=== PATIENT | male | born 1960 | race Caucasian/White ===

== ENCOUNTER 2020-07-27 07:31 | Observation (INO) | payer OTHER ==
[~2020-07-27] VITALS: Ht 177.8 cm; Wt 98.6 kg
[2020-07-27 07:45] LABS: BASO # 0.1 x10^3/uL (0.0-0.2); BASO % 1 % (0-3); EOS # 0.2 x10^3/uL (0.0-0.7); EOS % 3 % (0-3); HEMATOCRIT 49.8 % (39.0-53.0); HEMOGLOBIN 17.1 g/dL (13.0-17.5); LYMPH # 3.1 x10^3/uL (1.0-4.8); LYMPH % 34 % (24-48); MEAN CORPUSCULAR HEMOGLOBIN 32 pg (25-35); MEAN CORPUSCULAR HGB CONC 34 g/dL (31-37); MEAN CORPUSCULAR VOLUME 94 fL (79-100); MONO # 0.8 x10^3/uL (0.0-1.1); MONO % 9 % (0-9); NEUT # 4.7 x10^3/uL (1.8-7.7); NEUT % 53 % (31-73); PLATELET COUNT 310 x10^3/uL (140-400); RED BLOOD COUNT 5.29 x10^6/uL (4.30-5.70); RED CELL DISTRIBUTION WIDTH 13.3 % (11.5-14.5)
[2020-07-27 07:58] LABS: GFR 75.7; POTASSIUM 3.4 mmol/L (3.5-5.1)
--- NOTE | 2020-07-27 07:59 | RAD ---
AP chest. HISTORY: Chest pain AP view was taken of the chest. Lungs are clear. Heart is normal in size. There is no effusion. IMPRESSION: 1. No acute chest disease. Electronically signed by: Ke Christensen MD (07/27/2020 7:57 AM) [id number]
--- NOTE | 2020-07-27 08:09 | ED.ADGEN ---
Past Medical History Past Medical History: Arthritis Additional Past Medical Histor: DDD,HEP C,BARRITS ESOPHAGEAL Past Surgical History: Other Additional Past Surgical Histo: LEFT LEG Smoking Status: Current Every Day Smoker Alcohol Use: None General Adult EDM: Chief Complaint: CHEST PAIN-CARDIAC NATURE HPI: HPI: Patient is a 60 year old [f__sex] who presents with [] Review of Systems: Review of Systems: Constitutional: Denies fever or chills. [] Eyes: Denies change in visual acuity. [] HENT: Denies nasal congestion or sore throat. [] Respiratory: Denies cough or shortness of breath. [] Cardiovascular: Denies chest pain or edema. [] GI: Denies abdominal pain, nausea, vomiting, bloody stools or diarrhea. [] : Denies dysuria. [] Musculoskeletal: Denies back pain or joint pain. [] Integument: Denies rash. [] Neurologic: Denies headache, focal weakness or sensory changes. [] Endocrine: Denies polyuria or polydipsia. [] Lymphatic: Denies swollen glands. [] Psychiatric: Denies depression or anxiety. [] Current Medications: Current Medications Medications (Trade) Dose Ordered Sig/Cherry Start Time Stop Time Status Last Admin Dose Admin Potassium Bicarbonate (Potassium Effervescent Tablet) 40 meq 1X ONCE 07/27/20 08:45 07/27/20 08:46 DC 07/27/20 08:45 40 MEQ Allergies: Allergies: Allergies Coded Allergies Type Severity Reaction Last Updated Verified No Known Drug Allergies 07/27/20 No Physical Exam: PE: Constitutional: Well developed, well nourished, no acute distress, non-toxic appearance. [] HENT: Normocephalic, atraumatic, bilateral external ears normal, oropharynx moist, no oral exudates, nose normal. [] Eyes: PERRLA, EOMI, conjunctiva normal, no discharge. [] Neck: Normal range of motion, no tenderness, supple, no stridor. [] Cardiovascular:Heart rate regular rhythm, no murmur [] Lungs & Thorax: Bilateral breath sounds clear to auscultation [] Abdomen: Bowel sounds normal, soft, no tenderness, no masses, no pulsatile masses. [] Skin: Warm, dry, no erythema, no rash. [] Back: No tenderness, no CVA tenderness. [] Extremities: No tenderness, no cyanosis, no clubbing, ROM intact, no edema. [] Neurologic: Alert and oriented X 3, normal motor function, normal sensory function, no focal deficits noted. [] Psychologic: Affect normal, judgement normal, mood normal. [] Current Patient Data: Labs: Laboratory Tests Test 07/27/20 07:35 White Blood Count 9.0 x10^3/uL (4.0-11.0) Red Blood Count 5.29 x10^6/uL (4.30-5.70) Hemoglobin 17.1 g/dL (13.0-17.5) Hematocrit 49.8 % (39.0-53.0) Mean Corpuscular Volume 94 fL (79-100) Mean Corpuscular Hemoglobin 32 pg (25-35) Mean Corpuscular Hemoglobin Concent 34 g/dL (31-37) Red Cell Distribution Width 13.3 % (11.5-14.5) Platelet Count 310 x10^3/uL (140-400) Neutrophils (%) (Auto) 53 % (31-73) Lymphocytes (%) (Auto) 34 % (24-48) Monocytes (%) (Auto) 9 % (0-9) Eosinophils (%) (Auto) 3 % (0-3) Basophils (%) (Auto) 1 % (0-3) Neutrophils # (Auto) 4.7 x10^3/uL (1.8-7.7) Lymphocytes # (Auto) 3.1 x10^3/uL (1.0-4.8) Monocytes # (Auto) 0.8 x10^3/uL (0.0-1.1) Eosinophils # (Auto) 0.2 x10^3/uL (0.0-0.7) Basophils # (Auto) 0.1 x10^3/uL (0.0-0.2) Sodium Level 145 mmol/L (136-145) Potassium Level 3.4 mmol/L (3.5-5.1) L Chloride Level 108 mmol/L (98-107) H Carbon Dioxide Level 23 mmol/L (21-32) Anion Gap 14 (6-14) Blood Urea Nitrogen 20 mg/dL (8-26) Creatinine 1.0 mg/dL (0.7-1.3) Estimated GFR (Cockcroft-Gault) 75.7 Glucose Level 121 mg/dL (70-99) H Calcium Level 9.0 mg/dL (8.5-10.1) Magnesium Level 1.9 mg/dL (1.8-2.4) Troponin I Quantitative < 0.017 ng/mL (0.000-0.055) Laboratory Tests 07/27/20 07:35 Laboratory Tests 07/27/20 07:35 Vital Signs: Vital Signs Date Time Temp Pulse Resp B/P (MAP) Pulse Ox O2 Delivery O2 Flow Rate FiO2 07/27/20 07:35 97.0 71 18 131/59 (83) 97 Room Air 97.0 EKG: EKG: [] Heart Score: HEART Score for Chest Pain: HEART Score for Chest Pain Response (Comments) Value History Moderately Suspicious 1 ECG Nonspecific Repolarizatio 1 Age >45 - < 65 1 Risk Factors 1 or 2 Risk Factors 1 Troponin < Normal Limit 0 Total 4 Risk Factors: Risk Factors: DM, Current or recent (<one month) smoker, HTN, HLP, family history of CAD, obesity. Risk Scores: Score 0 - 3: 2.5% MACE over next 6 weeks - Discharge Home Score 4 - 6: 20.3% MACE over next 6 weeks - Admit for Clinical Observation Score 7 - 10: 72.7% MACE over next 6 weeks - Early Invasive Strategies Radiology/Procedures: Radiology/Procedures: [] Course & Med Decision Making: Course & Med Decision Making Pertinent Labs and Imaging studies reviewed. (See chart for details) [id number] Attempted to evaluate patient. Patient is on phone and I was unable to evaluate him. Did evaluate his EKG. EMS initially called it in as a STEMI with concern for elevation in V3-V4. EKG was done here which does show some changes of the T wave which could be related to hyperacute t waves, however there is not 1 mm of elevation. Repeat EKG will be done to ensure there is no evolution of the changes. Saleem Disclaimer: Saleem Disclaimer: This electronic medical record was generated, in whole or in part, using a voice recognition dictation system. Departure Departure Impression: Primary Impression: Near syncope Disposition: ADMITTED INPT THIS HOSP Condition: STABLE AURA SIDHU MD Jul 27, 2020 08:09
--- NOTE | 2020-07-27 08:40 | PDOC1 ---
History and Physical Date of Admission Date of Admission DATE: 07/27/20 TIME: 08:35 Identification/Chief Complaint Chief Complaint Chest pain Source Source: Patient History of Present Illness History of Present Illness Mr Hull is a 60yo male with PMHx Barretts esophagus, hep c in SVR, DJD of lumbar spine, ETOH abuse in sustained remission, and smoker who was recently released from detention after 8 years back in February 2020 who presents with sudden onset chest pain while in prison house, smoked a cigarette, didn't feel better, in fact felt more dizzy and nauseated. Pain was sharp, left sided, radiated into his jaw and arm. Worsening with exertion, improved only slightly with rest. 12/01. EMS initially called it in as a STEMI with concern for elevation in V3-V4. EKG here possibly with T waves which could be related to hyperacute t waves, no ST segment elevations or depressions, not 1 mm of elevation. No V3 or V4 changes. Chest radiograph with no acute findings. Labs with potassium 3.4, glucose 121, initial troponin negative. Admitted for further observation. Past Medical History Cardiovascular: No pertinent hx Pulmonary: No pertinent hx GI: GERD Heme/Onc: No pertinent hx Hepatobiliary: No pertinent hx, Hep A/B/C Psych: Addictions (ETOH abuse in remission) Rheumatologic: No pertinent hx Infectious disease: No pertinent hx ENT: No pertinent hx Renal/: No pertinent hx Endocrine: No pertinent hx Dermatology: No pertinent hx Past Surgical History Past Surgical History: Other (Right femur fracture - obie placed) Family History Family History: Cancer (Father - lung, sister - brain), Stroke (Paternal grandmother) Family History: Parent, Grandparents Social History Smoke: <1 pack per day ALCOHOL: other (Quit in 2010) Drugs: None Allergies Allergies: Coded Allergies: No Known Drug Allergies (Unverified , 07/27/20) ROS General: YES: Fatigue, Malaise; No: Chills, Night Sweats, Appetite, Other PSYCHOLOGICAL ROS: YES: Anxiety; No: Behavioral Disorder, Concentration difficultie, Decreased libido, Depression, Disorientation, Hallucinations, Hostility, Irritablity, Memory difficulties, Mood Swings, Obsessive thoughts, Physical abuse, Sexual abuse, Sleep disturbances, Suicidal ideation, Other Eyes: No Blurry vision, No Decreased vision, No Double vision, No Dry eyes, No Excessive tearing, No Eye Pain, No Itchy Eyes, No Loss of vision, No Photophobia, No Scotomata, No Uses contacts, No Uses glasses, No Other HEENT: No: Heacaches, Visual Changes, Hearing change, Nasal congestion, Nasal discharge, Oral lesions, Sinus pain, Sore Throat, Epistaxis, Sneezing, Snoring, Tinnitus, Vertigo, Vocal changes, Other ALLERGY AND IMMUNOLOGY: No: Hives, Insect Bite Sensitivity, Itchy/Watery Eyes, Nasal Congestion, Post Nasal Drip, Seasonal Allergies, Other Hematological and Lymphatic: No: Bleeding Problems, Blood Clots, Blood Transfusions, Brusing, Night Sweats, Pallor, Swollen Lymph Nodes, Other ENDOCRINE: No: Breast Changes, Galactorrhea, Hair Pattern Changes, Hot Flashes, Malaise/lethargy, Mood Swings, Palpitations, Polydipsia/polyuria, Skin Changes, Temperature Intolerance, Unexpected Weight Changes, Other Breast: No New/Changing Breast Lumps, No Nipple changes, No Nipple discharge, No Other Respiratory: No: Cough, Hemoptysis, Orthopnea, Pleuritic Pain, Shortness of breath, SOB with excertion, Sputum Changes, Stridor, Tachypnea, Wheezing, Other Cardiovascular: yes Chest Pain; No Palpitations, No Orthopnea, No Paroxysmal Noc. Dyspnea, No Edema, No Lt Headedness, No Other Gastrointestinal: No Nausea, No Vomiting, No Abdominal Pain, No Diarrhea, No Constipation, No Melena, No Hematochezia, No Other Genitourinary: No Dysuria, No Frequency, No Incontinence, No Hematuria, No Retention, No Discharge, No Urgency, No Pain, No Flank Pain, No Other, No , No , No , No , No , No , No Musculoskeletal: No Gait Disturbance, No Joint Pain, No Joint Stiffness, No Joint Swelling, No Muscle Pain, No Muscular Weakness, No Pain In:, No Swelling In:, No Other Neurological: No Behavorial Changes, No Bowel/Bladder ControlChng, No Confusion, No Dizziness, No Gait Disturbance, No Headaches, No Impaired Coord/balance, No Memory Loss, No Numbness/Tingling, No Seizures, No Speech Problems, No Tremors, No Visual Changes, No Weakness, No Other Skin: No Dry Skin, No Eczema, No Hair Changes, No Lumps, No Mole Changes, No Mottling, No Nail Changes, No Pruritus, No Rash, No Skin Lesion Changes, No Other, No Acne Physical Exam General: Alert, Oriented X3, Cooperative, No acute distress HEENT: Atraumatic, PERRLA, EOMI, Mucous membr. moist/pink Lungs: Clear to auscultation, Normal air movement Heart: S1S2, RRR, no thrills, no rubs, no gallops, no murmurs Abdomen: Normal bowel sounds, Soft, No tenderness, No hepatosplenomegaly, No masses Rectal Exam: not examined Extremities: No clubbing, No cyanosis, No edema, Normal pulses, No tenderness/swelling Skin: No rashes, No breakdown, No significant lesion Neuro: Normal gait, Normal speech, Strength at 5/5 X4 ext, Normal tone, Sensati on intact, Cranial nerves 3-12 NL, Reflexes 2+ Psych/Mental Status: Mental status NL, Mood NL Vitals Vitals Vital Signs Date Time Temp Pulse Resp B/P (MAP) Pulse Ox O2 Delivery O2 Flow Rate FiO2 07/27/20 07:35 97.0 71 18 131/59 (83) 97 Room Air 97.0 Labs Labs Laboratory Tests Test 07/27/20 07:35 White Blood Count 9.0 x10^3/uL (4.0-11.0) Red Blood Count 5.29 x10^6/uL (4.30-5.70) Hemoglobin 17.1 g/dL (13.0-17.5) Hematocrit 49.8 % (39.0-53.0) Mean Corpuscular Volume 94 fL (79-100) Mean Corpuscular Hemoglobin 32 pg (25-35) Mean Corpuscular Hemoglobin Concent 34 g/dL (31-37) Red Cell Distribution Width 13.3 % (11.5-14.5) Platelet Count 310 x10^3/uL (140-400) Neutrophils (%) (Auto) 53 % (31-73) Lymphocytes (%) (Auto) 34 % (24-48) Monocytes (%) (Auto) 9 % (0-9) Eosinophils (%) (Auto) 3 % (0-3) Basophils (%) (Auto) 1 % (0-3) Neutrophils # (Auto) 4.7 x10^3/uL (1.8-7.7) Lymphocytes # (Auto) 3.1 x10^3/uL (1.0-4.8) Monocytes # (Auto) 0.8 x10^3/uL (0.0-1.1) Eosinophils # (Auto) 0.2 x10^3/uL (0.0-0.7) Basophils # (Auto) 0.1 x10^3/uL (0.0-0.2) Sodium Level 145 mmol/L (136-145) Potassium Level 3.4 mmol/L (3.5-5.1) Chloride Level 108 mmol/L (98-107) Carbon Dioxide Level 23 mmol/L (21-32) Anion Gap 14 (6-14) Blood Urea Nitrogen 20 mg/dL (8-26) Creatinine 1.0 mg/dL (0.7-1.3) Estimated GFR (Cockcroft-Gault) 75.7 Glucose Level 121 mg/dL (70-99) Calcium Level 9.0 mg/dL (8.5-10.1) Troponin I Quantitative < 0.017 ng/mL (0.000-0.055) Laboratory Tests Test 07/27/20 07:35 White Blood Count 9.0 x10^3/uL (4.0-11.0) Red Blood Count 5.29 x10^6/uL (4.30-5.70) Hemoglobin 17.1 g/dL (13.0-17.5) Hematocrit 49.8 % (39.0-53.0) Mean Corpuscular Volume 94 fL (79-100) Mean Corpuscular Hemoglobin 32 pg (25-35) Mean Corpuscular Hemoglobin Concent 34 g/dL (31-37) Red Cell Distribution Width 13.3 % (11.5-14.5) Platelet Count 310 x10^3/uL (140-400) Neutrophils (%) (Auto) 53 % (31-73) Lymphocytes (%) (Auto) 34 % (24-48) Monocytes (%) (Auto) 9 % (0-9) Eosinophils (%) (Auto) 3 % (0-3) Basophils (%) (Auto) 1 % (0-3) Neutrophils # (Auto) 4.7 x10^3/uL (1.8-7.7) Lymphocytes # (Auto) 3.1 x10^3/uL (1.0-4.8) Monocytes # (Auto) 0.8 x10^3/uL (0.0-1.1) Eosinophils # (Auto) 0.2 x10^3/uL (0.0-0.7) Basophils # (Auto) 0.1 x10^3/uL (0.0-0.2) Sodium Level 145 mmol/L (136-145) Potassium Level 3.4 mmol/L (3.5-5.1) Chloride Level 108 mmol/L (98-107) Carbon Dioxide Level 23 mmol/L (21-32) Anion Gap 14 (6-14) Blood Urea Nitrogen 20 mg/dL (8-26) Creatinine 1.0 mg/dL (0.7-1.3) Estimated GFR (Cockcroft-Gault) 75.7 Glucose Level 121 mg/dL (70-99) Calcium Level 9.0 mg/dL (8.5-10.1) Troponin I Quantitative < 0.017 ng/mL (0.000-0.055) Images Images Chest radiograph: Lungs are clear. Heart is normal in size. There is no effusion. IMPRESSION: 1. No acute chest disease. VTE Prophylaxis Ordered VTE Prophylaxis Devices: No VTE Pharmacological Prophylaxi: Yes Assessment/Plan Assessment/Plan A/P: Chest pain - typical. Will trend troponins. tele. check echo. Will consult cardiology given his age and smoking risk factors Hyperglycemia - will check a1c Barretts esophagus - likely GERD is his actual chest pain cause, will give GI cocktail, pepcid Hep c in SVR - no viral load within past 4 months DJD of lumbar spine - stable ETOH abuse - in remission for over 8 years Hypokalemia - will replace K and mag FEN - NPO PPX - lovenox FULL CODE Dispo - observation, may be able to d/c if troponin and echo WNL. Will d/w cardiology however Justifications for Admission Other Justification SOCORRO GARCIA MD Jul 27, 2020 08:40
[2020-07-27] MEDS ORDERED: POTASSIUM BICARB 20 MEQ EFFERVESCENT TABLET. PO ONE (08:45)
--- NOTE | 2020-07-27 09:08 | EKG ---
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
--- NOTE | 2020-07-27 09:09 | EKG ---
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
[2020-07-27 10:04] VITALS: BP 138/80
[2020-07-27] MEDS ORDERED: FAMOTIDINE 20 MG TABLET. PO ONE (11:30)
[2020-07-27] MEDS ORDERED: LIDO:MAALOX 1:1 20 ML SINGLE DOSE. SWSW ONE (11:30)
[2020-07-27] MEDS ORDERED: MAGNESIUM SULFATE 1GM 100 ML IV ONE (12:00)
--- NOTE | 2020-07-27 12:33 | CARD ---
MR#: [id number] Date of Study: 07/27/2020 Ordering Physician: SOCORRO GARCIA, Referring Physician: SOCORRO GARCIA, Tech: Rupali Swartz [facility] APPROVED REPORT EXAM: Two-dimensional and M-mode echocardiogram with Doppler and color Doppler. Other Information Quality : Good INDICATION Abnormal ECG Chest Pain 2D DIMENSIONS RVDd2.8 (2.9-3.5cm)Left Atrium(2D)3.5 (1.6-4.0cm) IVSd1.1 (0.7-1.1cm)Aortic Root(2D)3.2 (2.0-3.7cm) LVDd5.1 (3.9-5.9cm)LVOT Diameter2.2 (1.8-2.4cm) PWd1.0 (0.7-1.1cm)LVDs3.0 (2.5-4.0cm) FS (%) 30.0 %SV88.0 ml LVEF(%)60.0 (>50%) Aortic Valve AoV Peak Anthony.113.1cm/sAoV VTI21.6cm AO Peak GR.5.1mmHgLVOT Peak Anthony.85.6cm/s LVOT VTI 20.08cmAO Mean GR.3mmHg HEMANT (VMAX)2.52tr4AWG (VTI)3.56cm2 Mitral Valve MV E Awprchbu71.5cm/sMV DECEL [id number] MV A Fegusvsn50.8cm/sMV SRT44tl E/A Ratio0.6MVA (PHT)2.26cm2 TDI E/Lateral E'9.0E/Medial E'10.5 Tricuspid Valve TR P. Hruomnah768qy/sRAP HBZULMBF4ppIl TR Peak Gr.92ttYiYUCO89frNn Pulmonary Vein S1 Ftctkyav66.6cm/sD2 Sumegfic61.8cm/s LEFT VENTRICLE The left ventricle is normal size. There is normal left ventricular wall thickness. The left ventricu lar systolic function is normal. The Ejection Fraction is 55-60%. There is normal LV segmental wall m otion. Transmitral Doppler flow pattern is Grade I-abnormal relaxation pattern. RIGHT VENTRICLE The right ventricle is normal size. The right ventricular systolic function is normal. ATRIA The left atrium size is normal. The right atrium size is normal. The interatrial septum is intact wit h no evidence for an atrial septal defect or patent foramen ovale as noted on 2-D or Doppler imaging. AORTIC VALVE The aortic valve is calcified but opens well. Doppler and Color Flow revealed trace aortic regurgitat ion. There is no significant aortic valvular stenosis. MITRAL VALVE Mitral annular calcification is mild. There is no evidence of mitral valve prolapse. There is no mitr al valve stenosis. Doppler and Color-flow revealed trace mitral regurgitation. TRICUSPID VALVE The tricuspid valve is normal in structure and function. Doppler and Color Flow revealed trace tricus pid regurgitation. The PA pressure was estimated at 26 mmHg. There is no tricuspid valve stenosis. PULMONIC VALVE The pulmonic valve is not well visualized. Doppler and Color Flow revealed no pulmonic valvular regur gitation. There is no pulmonic valvular stenosis. GREAT VESSELS The aortic root is normal in size. The ascending aorta is mildly dilated at 3.7 cm. The IVC is normal in size and collapses >50% with inspiration. PERICARDIAL EFFUSION There is no evidence of significant pericardial effusion. Critical Notification Critical Value: No <Conclusion> The left ventricular systolic function is normal. The Ejection Fraction is 55-60%. There is normal LV segmental wall motion. Transmitral Doppler flow pattern is Grade I-abnormal relaxation pattern. Trace mitral regurgitation. Trace tricuspid regurgitation. The PA pressure was estimated at 26 mmHg. There is no evidence of significant pericardial effusion. Signed by : Lyndon Freitas, Electronically Approved : 07/27/2020 12:33:37
--- NOTE | 2020-07-27 12:42 | PDOC2 ---
GREGG ARANDA ULTRASONIC TESTER 07/27/20 1242: CARDIAC CONSULT DATE OF CONSULT Date of Consult DATE: 07/27/20 TIME: 12:29 REASON FOR CONSULT Reason for Consult: Chest pain REFERRING PHYSICIAN Referring Physician: Venessa SOURCE Source: Chart review, Patient HISTORY OF PRESENT ILLNESS HISTORY OF PRESENT ILLNESS This is a pleasant 60 yo male admitted for complains of chest pain. Reports no SOA but did have some vertigo, complain of room spinning got sweaty and unsteady on his feet and was stumbling yesterday morning. No tinnitus nor significant COLEMAN. No recent infection. No fever or chills. Denies any recent ear or sinus infection. No COLEMAN. No neurosymptoms. His chest pain is pressure starteing from his spine and between shoulder blades going to midsternal region. No exertional chest pain nor SOA. Due to his back issues with degenerative disc disease he has been taking high ibuprofen and also naproxen. He does take prilosec as well. He has hx of bareets which was noted over a yr ago. No hx of CAD. VTE or arrhythmi as. No recent falls or injury. He lives in a retirement house currently recently got out of group home. 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 PAST MEDICAL HISTORY Cardiovascular: No pertinent hx Pulmonary: No pertinent hx CENTRAL NERVOUS SYSTEM: Other (No pertinent history) GI: GERD (barretts) Hepatobiliary: No pertinent hx, Hep A/B/C (C treated) Psych: No pertinent hx Musculoskeletal: Osteoarthritis Rheumatologic: No pertinent hx Infectious disease: No pertinent hx ENT: No pertinent hx Renal/: No pertinent hx Endocrine: No pertinent hx Dermatology: No pertinent hx PAST SURGICAL HISTORY Past Surgical History: Other (right femur repair) FAMILY HISTORY Family History noncontributory to CV SOCIAL HISTORY Smoke: 1 pack per day ALCOHOL: none Drugs: None Lives: Alone CURRENT MEDICATIONS CURRENT MEDICATIONS Current Medications Medications (Trade) Dose Ordered Sig/Cherry Route PRN Reason Start Time Stop Time Status Last Admin Dose Admin Potassium Bicarbonate (Potassium Effervescent Tablet) 40 meq 1X ONCE PO 07/27/20 08:45 07/27/20 08:46 DC 07/27/20 08:45 Magnesium Sulfate/ Dextrose 100 ml @ 100 mls/hr 1X ONCE IV 07/27/20 12:00 07/27/20 12:59 07/27/20 12:03 Famotidine (Pepcid) 20 mg 1X ONCE PO 07/27/20 11:30 07/27/20 11:31 DC 07/27/20 12:02 ALLERGIES ALLERGIES: Coded Allergies: No Known Drug Allergies (Unverified , 07/27/20) ROS Review of System 14 point ROS evaluated with pertinent positives noted per HPI PHYSICAL EXAM General: Alert, Oriented X3, Cooperative, No acute distress HEENT: Atraumatic, Mucous membr. moist/pink Lungs: Clear to auscultation, Normal air movement Heart: Regular rate (SR), Normal S1, Normal S2, No murmurs Abdomen: Soft, No tenderness Extremities: No cyanosis, Other (1-2+ bilateral LE pitting edema) Skin: No breakdown Neuro: Normal speech, Sensation intact Psych/Mental Status: Mental status NL, Mood NL MUSCULOSKELETAL: Osteoarthritic changes both hands VITALS/I&O VITALS/I&O: Vital Signs Date Time Temp Pulse Resp B/P (MAP) Pulse Ox O2 Delivery O2 Flow Rate FiO2 07/27/20 10:04 97.5 76 18 138/80 (99) 96 Room Air 97.5 LABS Lab: Laboratory Tests Test 07/27/20 07:35 07/27/20 11:50 White Blood Count 9.0 x10^3/uL (4.0-11.0) Red Blood Count 5.29 x10^6/uL (4.30-5.70) Hemoglobin 17.1 g/dL (13.0-17.5) Hematocrit 49.8 % (39.0-53.0) Mean Corpuscular Volume 94 fL (79-100) Mean Corpuscular Hemoglobin 32 pg (25-35) Mean Corpuscular Hemoglobin Concent 34 g/dL (31-37) Red Cell Distribution Width 13.3 % (11.5-14.5) Platelet Count 310 x10^3/uL (140-400) Neutrophils (%) (Auto) 53 % (31-73) Lymphocytes (%) (Auto) 34 % (24-48) Monocytes (%) (Auto) 9 % (0-9) Eosinophils (%) (Auto) 3 % (0-3) Basophils (%) (Auto) 1 % (0-3) Neutrophils # (Auto) 4.7 x10^3/uL (1.8-7.7) Lymphocytes # (Auto) 3.1 x10^3/uL (1.0-4.8) Monocytes # (Auto) 0.8 x10^3/uL (0.0-1.1) Eosinophils # (Auto) 0.2 x10^3/uL (0.0-0.7) Basophils # (Auto) 0.1 x10^3/uL (0.0-0.2) Sodium Level 145 mmol/L (136-145) Potassium Level 3.4 mmol/L (3.5-5.1) L Chloride Level 108 mmol/L (98-107) H Carbon Dioxide Level 23 mmol/L (21-32) Anion Gap 14 (6-14) Blood Urea Nitrogen 20 mg/dL (8-26) Creatinine 1.0 mg/dL (0.7-1.3) Estimated GFR (Cockcroft-Gault) 75.7 Glucose Level 121 mg/dL (70-99) H Calcium Level 9.0 mg/dL (8.5-10.1) Magnesium Level 1.9 mg/dL (1.8-2.4) Troponin I Quantitative < 0.017 ng/mL (0.000-0.055) < 0.017 ng/mL (0.000-0.055) Laboratory Tests 07/27/20 07:35 Laboratory Tests 07/27/20 07:35 ASSESSMENT/PLAN ASSESSMENT/PLAN 1. Atypical chest pain: suspect GI, doubt ACS 2. High dose naproxen and ibuprofen together taken for his DDD 3. Hx of Barretts: on prilosec 4. Tobaccoism 5. Vertigo: possibly from high dose NSAID. per PCP Recommendation 1. Decrease amount of NSAID. analgesic per PCP 2. Continue PPI 3. Smoking cessation. Check FLP 4. No further cardiac workup ASHLEY ARMSTRONG MD 07/27/20 1647: GREGG ARANDA APRN Jul 27, 2020 12:42 ASHLEY ARMSTRONG MD Jul 27, 2020 16:47
[2020-07-27] MEDS ORDERED: NAPR500T8 PO (12:48)
[2020-07-27] MEDS ORDERED: IBUP-1060 PO (12:48)
[2020-07-27] MEDS ORDERED: OMEP20TA8 PO (12:48)
[2020-07-27 13:23] LABS: CHOLESTEROL/HDL RATIO 3.5
[2020-07-27 14:30] VITALS: BP 141/67
--- NOTE | 2020-07-27 14:43 | PDOC3 ---
Discharge Summary Visit Information Date of Admission: Jul 27, 2020 Date of Discharge: Jul 27, 2020 Admitting Diagnosis: Chest pain Final Diagnosis Problems Medical Problems: (1) Near syncope Status: Acute Brief Hospital Course Allergies Allergies Coded Allergies Type Severity Reaction Last Updated Verified No Known Drug Allergies 07/27/20 No Vital Signs Vital Signs Date Time Temp Pulse Resp B/P (MAP) Pulse Ox O2 Delivery O2 Flow Rate FiO2 07/27/20 14:30 98.0 67 18 141/67 (91) 98 Room Air 98.0 Lab Results Laboratory Tests Test 07/27/20 07:35 07/27/20 11:50 White Blood Count 9.0 x10^3/uL (4.0-11.0) Red Blood Count 5.29 x10^6/uL (4.30-5.70) Hemoglobin 17.1 g/dL (13.0-17.5) Hematocrit 49.8 % (39.0-53.0) Mean Corpuscular Volume 94 fL (79-100) Mean Corpuscular Hemoglobin 32 pg (25-35) Mean Corpuscular Hemoglobin Concent 34 g/dL (31-37) Red Cell Distribution Width 13.3 % (11.5-14.5) Platelet Count 310 x10^3/uL (140-400) Neutrophils (%) (Auto) 53 % (31-73) Lymphocytes (%) (Auto) 34 % (24-48) Monocytes (%) (Auto) 9 % (0-9) Eosinophils (%) (Auto) 3 % (0-3) Basophils (%) (Auto) 1 % (0-3) Neutrophils # (Auto) 4.7 x10^3/uL (1.8-7.7) Lymphocytes # (Auto) 3.1 x10^3/uL (1.0-4.8) Monocytes # (Auto) 0.8 x10^3/uL (0.0-1.1) Eosinophils # (Auto) 0.2 x10^3/uL (0.0-0.7) Basophils # (Auto) 0.1 x10^3/uL (0.0-0.2) Sodium Level 145 mmol/L (136-145) Potassium Level 3.4 mmol/L (3.5-5.1) Chloride Level 108 mmol/L (98-107) Carbon Dioxide Level 23 mmol/L (21-32) Anion Gap 14 (6-14) Blood Urea Nitrogen 20 mg/dL (8-26) Creatinine 1.0 mg/dL (0.7-1.3) Estimated GFR (Cockcroft-Gault) 75.7 Glucose Level 121 mg/dL (70-99) Calcium Level 9.0 mg/dL (8.5-10.1) Magnesium Level 1.9 mg/dL (1.8-2.4) Troponin I Quantitative < 0.017 ng/mL (0.000-0.055) < 0.017 ng/mL (0.000-0.055) Triglycerides Level 95 mg/dL (0-150) Cholesterol Level 170 mg/dL (0-200) LDL Cholesterol, Calculated 103 mg/dL (0-100) VLDL Cholesterol, Calculated 19 mg/dL (0-40) Non-HDL Cholesterol Calculated 122 mg/dL (0-129) HDL Cholesterol 48 mg/dL (40-60) Cholesterol/HDL Ratio 3.5 Laboratory Tests Test 07/27/20 07:35 07/27/20 11:50 White Blood Count 9.0 x10^3/uL (4.0-11.0) Red Blood Count 5.29 x10^6/uL (4.30-5.70) Hemoglobin 17.1 g/dL (13.0-17.5) Hematocrit 49.8 % (39.0-53.0) Mean Corpuscular Volume 94 fL (79-100) Mean Corpuscular Hemoglobin 32 pg (25-35) Mean Corpuscular Hemoglobin Concent 34 g/dL (31-37) Red Cell Distribution Width 13.3 % (11.5-14.5) Platelet Count 310 x10^3/uL (140-400) Neutrophils (%) (Auto) 53 % (31-73) Lymphocytes (%) (Auto) 34 % (24-48) Monocytes (%) (Auto) 9 % (0-9) Eosinophils (%) (Auto) 3 % (0-3) Basophils (%) (Auto) 1 % (0-3) Neutrophils # (Auto) 4.7 x10^3/uL (1.8-7.7) Lymphocytes # (Auto) 3.1 x10^3/uL (1.0-4.8) Monocytes # (Auto) 0.8 x10^3/uL (0.0-1.1) Eosinophils # (Auto) 0.2 x10^3/uL (0.0-0.7) Basophils # (Auto) 0.1 x10^3/uL (0.0-0.2) Sodium Level 145 mmol/L (136-145) Potassium Level 3.4 mmol/L (3.5-5.1) Chloride Level 108 mmol/L (98-107) Carbon Dioxide Level 23 mmol/L (21-32) Anion Gap 14 (6-14) Blood Urea Nitrogen 20 mg/dL (8-26) Creatinine 1.0 mg/dL (0.7-1.3) Estimated GFR (Cockcroft-Gault) 75.7 Glucose Level 121 mg/dL (70-99) Calcium Level 9.0 mg/dL (8.5-10.1) Magnesium Level 1.9 mg/dL (1.8-2.4) Troponin I Quantitative < 0.017 ng/mL (0.000-0.055) < 0.017 ng/mL (0.000-0.055) Triglycerides Level 95 mg/dL (0-150) Cholesterol Level 170 mg/dL (0-200) LDL Cholesterol, Calculated 103 mg/dL (0-100) VLDL Cholesterol, Calculated 19 mg/dL (0-40) Non-HDL Cholesterol Calculated 122 mg/dL (0-129) HDL Cholesterol 48 mg/dL (40-60) Cholesterol/HDL Ratio 3.5 Brief Hospital Course Mr Hull is a 60yo male with PMHx Barretts esophagus, hep c in SVR, DJD of lumbar spine, 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 Pain was sharp, left sided, radiated into his jaw and arm. Worsening with exertion, improved only slightly with rest. 12/01. EMS initially called it in as a STEMI with concern for elevation in V3-V4. EKG here possibly with T waves which could be related to hyperacute t waves, no ST segment elevations or depressions, not 1 mm of elevation. No V3 or V4 changes. Chest radiograph with no acute findings. Labs with potassium 3.4, glucose 121, initial troponin negative. Admitted for further observation. Repeat troponins negative and echo with no concerning findings. Recommended for outpatient stress testing by Cardiology and GI f/u outpatient, stop ibuprofen and smoking given he has history of barretts. Sees GI at [facility] Consults: Cardiology Echo: The left ventricular systolic function is normal. The Ejection Fraction is 55-60%. There is normal LV segmental wall motion. Transmitral Doppler flow pattern is Grade I-abnormal relaxation pattern. Trace mitral regurgitation. Trace tricuspid regurgitation. The PA pressure was estimated at 26 mmHg. There is no evidence of significant pericardial effusion. Problem list: Chest pain - ruled out acute NE, GI f/u outpatient Hyperglycemia - will check a1c Barretts esophagus - likely GERD is his actual chest pain cause, will give GI cocktail, pepcid Hep c in SVR - no viral load within past 4 months DJD of lumbar spine - stable ETOH abuse - in remission for over 8 years Hypokalemia - will replace K and mag Greater than 30 minutes spent on same day admit and d/c Discharge Information Condition at Discharge: Improved Follow Up: Weeks (1) Disposition/Orders: D/C to Home Scheduled Naproxen (Naproxen) 500 Mg Tablet., 500 MG PO BID for pain, (Reported) Entered as Reported by: MARTHA ALBRIGHT on 07/27/201247 Last Action: New Order on 07/27/201247 by MARTHA ALBRIGHT Omeprazole (Omeprazole) 20 Mg Tablet., 20 MG PO BID for GERD, (Reported) Entered as Reported by: MARTHA ALBRIGHT on 07/27/201247 Last Action: New Order on 07/27/201247 by MARTHA ALBRIGHT Scheduled PRN Ibuprofen (Ibuprofen) 800 Mg Tablet, 800 MG PO TID PRN for INFLAMMATION, (Reported) Entered as Reported by: MARTHA ALBRIGHT on 07/27/201247 Last Action: New Order on 07/27/201247 by MARTHA ALBRIGHT Justicifation of Admission Dx: Justifications for Admission: Justification of Admission Dx: Yes CHF: Sev. Electrolyte Abnormal SOCORRO GARCIA MD Jul 27, 2020 14:43
[2020-07-27] MEDS ORDERED: CELE100C PO (15:07)
--- NOTE | 2020-07-27 16:46 | NUR ---
Discharge: Teaching verbal and written. Reviewed medications, chest pain, CHO, GERD, ect. Patient verbalized understanding. 1 prescription given to patient. IV removed without complications, catheter tip in tact. All belongings with patient. Patient ambulated off of unit accompanied by Jelly.
[2020-07-27] MEDS ORDERED: FAMOTIDINE 20 MG TABLET. PO SCH (21:00)
== END 2020-07-27 16:30 | disposition home or self-care (01) ==
LOC: ER 07:31 → 2 NORTH 08:31
PROVIDERS: ADMIT Internal Medicine; ATTEND Internal Medicine
DX: R55 Syncope and collapse (principal); R07.89 Other chest pain; R73.9 Hyperglycemia, unspecified; K22.70 Barrett's esophagus without dysplasia; I85.00 Esophageal varices without bleeding; E87.6 Hypokalemia; I21.3 ST elevation (STEMI) myocardial infarction of unspecified site; B19.20 Unspecified viral hepatitis C without hepatic coma; K21.9 Gastro-esophageal reflux disease without esophagitis; M47.816 Spondylosis without myelopathy or radiculopathy, lumbar region; M19.90 Unspecified osteoarthritis, unspecified site; M51.36 Other intervertebral disc degeneration, lumbar region; F10.11 Alcohol abuse, in remission; F17.210 Nicotine dependence, cigarettes, uncomplicated; Z98.890 Other specified postprocedural states
CPT/HCPCS: 36415; 71045; 80048; 80061; 83735; 84484; 85025; 93005; 93306; 96365; 99285; G0378; J3475; G0379

== ENCOUNTER → 2020-10-10 | Outpatient (CLI) | payer OTHER ==
[~2020-10-10] MED LIST: CELE100C PO; IBUP-1060 PO; NAPR500T8 PO; OMEP20TA8 PO
--- NOTE | 2020-10-10 12:13 | RAD ---
MR CERVICAL SPINE WO DATE: 10/10/2020 9:02 AM INDICATION: Degenerative disc disease cervical TECHNIQUE: Multiplanar multisequence magnetic resonance imaging of the cervical spine was performed w ithout administration of intravenous contrast using the standard cervical spine protocol. COMPARISON: None. FINDINGS: Straightening of the cervical lordosis. No acute fracture. Moderate multilevel degenerative disc ceasar iccation and disc height loss. No marrow replacing process to suggest malignancy. The spinal cord is normal in signal intensity. On the limited views of the cranial cavity and brain, the cerebellum and [place] have normal morphology and signal characteristics. No Chiari malformation. No soft tissue abnormality. Normal signal voids are present in the vertebral arteries. C2-3: Moderate right and mild left facet arthropathy. No significant spinal canal stenosis or neural foraminal narrowing. C3-4: Disc osteophyte complex. Uncovertebral hypertrophy. Mild facet arthropathy. Mild right and mode rate left neural foraminal narrowing. No spinal canal stenosis. C4-5: Disc osteophyte complex. Uncovertebral hypertrophy. Severe bilateral neural foraminal narrowing . Mild spinal canal stenosis. C5-6: Disc osteophyte complex. Uncovertebral hypertrophy. Severe bilateral neural foraminal narrowing . Moderate spinal canal stenosis. C6-7: Disc osteophyte complex. Uncovertebral hypertrophy. Moderate right and severe left neural nai inal narrowing. Moderate spinal canal stenosis. C7-T1: Severe bilateral facet arthropathy. No significant spinal canal stenosis or neural foraminal n arrowing. IMPRESSION: Moderate to severe cervical spondylosis, detailed level by level above. Electronically signed by: Barak Aaron MD (10/10/2020 12:10 PM) [id number]
== END ==
LOC: MRI 08:15
PROVIDERS: ATTEND Physician Assistant
DX: M47.812 Spondylosis without myelopathy or radiculopathy, cervical region (principal); M48.02 Spinal stenosis, cervical region; M25.78 Osteophyte, vertebrae; M12.88 Other specific arthropathies, not elsewhere classified, other specified site; M89.38 Hypertrophy of bone, other site; M50.30 Other cervical disc degeneration, unspecified cervical region
CPT/HCPCS: 72141

== ENCOUNTER → 2020-12-04 | Outpatient (CLI) | payer OTHER ==
--- NOTE | 2020-12-04 15:10 | RAD ---
EXAM: Lumbar spine MRI without contrast. HISTORY: Pain. TECHNIQUE: Multiplanar, multisequence magnetic resonance imaging of the lumbar spine was performed wi thout contrast. COMPARISON: None. FINDINGS: There is mild lumbar scoliosis and hyperlordosis. There is grade 1 anterolisthesis of L5 on S1, measuring 4 mm. There is 2 mm retrolisthesis of T12 on L1 and L1 on L2. There is multilevel endp late remodeling. There are few endplate Schmorl's nodes. There is slight disc desiccation at multiple levels. The conus terminates at T12-L1. There is no suspicious osseous lesion. There is no fracture. At L1-L2, there is a disc bulge and anterior predominant endplate remodeling. There is no stenosis. At L2-L3, there is a left lateral recess to foraminal disc protrusion and annular tear superimposed o n a disc bulge and anterior predominant endplate remodeling. There is mild left facet arthropathy. Th ere is narrowing of the left lateral recess and abutment the traversing left L3 nerve root. At L3-L4, there is no stenosis. At L4-L5, there is a shallow right foraminal disc protrusion and annular tear superimposed on a disc bulge and endplate remodeling. There is mild right facet arthropathy. There is no stenosis. At L5-S1, there is a disc bulge and endplate remodeling. There is mild bilateral facet arthropathy. T here is grade 1 anterolisthesis with bilateral pars interarticularis defects. There is mild bilateral foraminal stenosis with abutment of the exiting right greater than left L5 nerve roots. IMPRESSION: 1. Grade 1 anterolisthesis with bilateral pars interarticularis defects at L5-S1. The combination of this finding and a disc bulge with endplate remodeling and facet arthropathy results in mild lateral foraminal stenosis and abutment the exiting right greater than left L5 nerve root at this level. 2. Degenerative change at the remainder of the lumbar levels, described in detail above. This is asso ciated with narrowing of the left lateral recess and abutment the traversing left L3 nerve root at L2 -L3. 3. Mild lumbar scoliosis and hyperlordosis. Electronically signed by: Fernanda Suarez MD (12/04/2020 3:07 PM) [id number]
== END ==
LOC: MRI 11:21
PROVIDERS: ATTEND Physician Assistant
DX: M47.817 Spondylosis without myelopathy or radiculopathy, lumbosacral region (principal); M51.27 Other intervertebral disc displacement, lumbosacral region; M48.061 Spinal stenosis, lumbar region without neurogenic claudication; M41.86 Other forms of scoliosis, lumbar region; M43.17 Spondylolisthesis, lumbosacral region; M51.46 Schmorl's nodes, lumbar region
CPT/HCPCS: 72148